=== PATIENT | male | born 1970 | race Two or more races ===

== ENCOUNTER 2023-12-24 21:45 | Emergency (ER) | payer MEDICAID, SELFPAY ==
--- NOTE | 2023-12-24 21:52 | ED.OVERDOSE ---
HPI - Overdose General Chief Complaint: Overdose Stated Complaint: OD, narcan given Source: patient and EMS Mode of arrival: EMS Limitations: no limitations History of Present Illness ED Provider: THOR BEAVERS Narrative: 53 yo male with PMH of opiate use disorder not on medications he was found sitting on porch in backyard overdosed EMS gave 8mg narcan was bagged by EMS responded well on arrival to ER he is sleepy but easily woken and oriented no head trauma. He does not want SUDE eval or detox. He agrees to narcan to go. He denies SI/HI. States he has overdosed before MD complaint: accidental overdose Onset (ago): minute(s) ([employer]) How Overdose Was Discovered: other (bystander) Context: Accidental Overdose: wanted to get high Treatments Prior to Arrival: narcan (8mg) Related Data Allergies Allergy/AdvReac Type Severity Reaction Status Date / Time No Known Allergies Allergy Verified 12/24/23 21:59 Review of Systems Review of Systems: Constitutional : No Fever, No Chills, No Fatigue ENT/Mouth : No sore throat, No Rhinorrhea Eyes: No Eye Pain, No Swelling, No Redness Cardiovascular : No Chest Pain, No SOB, No Dyspnea on Exertion Respiratory : No Cough, No Sputum Gastrointestinal : No Nausea, No Vomiting, No Diarrhea, No abdominal Pain Genitourinary : No Dysuria, No Urinary Frequency, No Hematuria, Musculoskeletal : No joint pain, No Myalgias, No Joint Swelling Skin : No Skin Lesions, No rash Neuro : No Weakness, No Numbness, No Dizziness, no Headache Psych : No Anxiety/Panic, No Depression, no SI/HI All other systems reviewed and are negative [facility] Past Medical History Attestation statement: The following information was validated with the patient. Medical History Opiate use Social History Social History (Updated 12/24/23 @ 22:14 by Lea Parish DO) Patient Tobacco Use Status: Current someday Tobacco user Do you have a plan to hurt others: No Plan Physical Exam Vital Signs: Vital Signs: Last Vital Signs Temp 98.2 F 12/25/23 00:18 Pulse 69 12/25/23 00:18 Resp 14 12/25/23 00:18 BP 155/93 H 12/24/23 21:59 Pulse Ox 94 12/25/23 00:18 O2 Del Method Room Air 12/25/23 00:18 BMI result Body Mass Index 27.3 Appearance: Sleepy but easily woken to voice and answering questions appropriately. Oriented X3. No acute distress. Eyes: Pupils equal, round and reactive to light. ENT: Pharynx normal. atraumatic Neck: Normal inspection. Neck supple. CVS: Normal heart rate and rhythm. Pulses normal. Respiratory: No respiratory distress. Breath sounds normal. Abdomen: Soft and nontender. Skin: Skin warm and dry. Normal skin color. Normal skin turgor. Extremities: No lower extremity edema. No calf ttp Neuro: Oriented X 3. No motor deficit. No sensory deficit. Medical Decision Making Medical Decision Making MDM Narrative: 53 yo male with PMH of opiate abuse and prior overdose found sitting on porch overdosed s/p 8mg narcan by EMS and bagged he is awake and oriented on arrival to ED no SI, no head trauma does not want SUDE eval or detox. He wants to leave after observation period. Narcan to go ordered Differential Diagnosis Differential Diagnoses: The differential diagnosis associated with the presentation includes accidental overdose, opiate use disorder Admission/Observation Consideration of admission/observation: Escalation of care including admission/observation considered patient declines any assistance for opiate use disorder observed for 4 hours and wants to leave no repeat narcan stable for DC Independent Historian Clinical information obtained from an independent historian. History obtained from or confirmed by: EMS Prescription Management I considered prescription management with: Other (narcan) Discharge Plan Discharge Clinical Impression: Drug overdose Patient Disposition: Home, Self-Care Instructions: Adult Overdose (ED), Opioid Use Disorder (ED) Additional Instructions: carry narcan with you at all times you were offered detox but declined return for any difficulty breathing or any other concerns.
[2023-12-24 21:53] VITALS: BP 168/96; PULSE 88; PULSE 91; RESP 16; O2SAT 97; BMI 27.3
[2023-12-24 21:59] VITALS: BP 155/93; PULSE 84; RESP 17; TEMP 36.6; O2SAT 94
--- NOTE | 2023-12-24 22:00 | MHC.EDTECH ---
pt changed over with security into hospital clothing, belongings to decon with security
--- NOTE | 2023-12-24 22:37 | PC.NURSE ---
Pt sleeping at this time, breathing even and unlabored, RR 14, SPO2 93-95% on RA. No outward distress noted.
[2023-12-25 00:18] VITALS: PULSE 69; RESP 14; TEMP 36.8; O2SAT 94
[2023-12-25 02:02] VITALS: BP 139/67; PULSE 69; RESP 16; TEMP 36.8; O2SAT 98
--- NOTE | 2023-12-25 03:49 | PC.NURSE ---
Leona, patient's girlfriend left a phone number [phone] to call her when patient discharged home for transportation. She will be only available to provider a ride back home after 7:00 am.
[2023-12-25] MEDS: Naloxone HCl Nasal TAKE HOME 4 MG SPRAY 8 MG NOSTRILALT (04:27)
[2023-12-25 04:28] VITALS: BP 110/64; PULSE 67; RESP 16; TEMP 36.8; O2SAT 98
== END 2023-12-25 04:39 | disposition home or self-care (01) ==
PROVIDERS: Emergency Provider Emergency Medicine
DX: T50.901A Poisoning by unspecified drugs, medicaments and biological substances, accidental (unintentional), initial encounter (principal); Y92.89 Other specified places as the place of occurrence of the external cause; F11.10 Opioid abuse, uncomplicated
CPT/HCPCS: 99285

== ENCOUNTER 2024-01-04 21:38 | Emergency (ER) | payer MEDICAID, SELFPAY ==
[2024-01-04 21:45] VITALS: BP 136/76; BP 150/80; PULSE 89; PULSE 96; RESP 18; TEMP 36.7; O2SAT 95; O2SAT 96; BMI 22.5
--- NOTE | 2024-01-04 21:47 | ED.OVERDOSE ---
HPI - Overdose General Chief Complaint: ETOH/Substance Use Stated Complaint: OD Time Seen by Provider: 01/04/24 21:41 Source: patient and old records reviewed Mode of arrival: ambulatory Limitations: no limitations History of Present Illness ED Provider: THOR BEAVERS Narrative: 53 yo male with opiate use disorder family found him overdosed on the couch did brief CPR and threw cold water on him he woke up. He did not get narcan. He denies SI. He does not want SUDE or detox he only agrees to stay for one hour as his girlfriend is waiting for him. complaint: accidental overdose Onset (ago): minute(s) (20) Context: Accidental Overdose: wanted to get high Treatments Prior to Arrival: other (cold water and family CPR) Related Data Allergies Allergy/AdvReac Type Severity Reaction Status Date / Time No Known Allergies Allergy Verified 01/04/24 21:49 Review of Systems Review of Systems: Constitutional : No Fever, No Chills, No Fatigue ENT/Mouth : No sore throat, No Rhinorrhea Eyes: No Eye Pain, No Swelling, No Redness Cardiovascular : No Chest Pain, No SOB, No Dyspnea on Exertion Respiratory : No Cough, No Sputum Gastrointestinal : No Nausea, No Vomiting, No Diarrhea, No abdominal Pain Genitourinary : No Dysuria, No Urinary Frequency, No Hematuria, Musculoskeletal : No joint pain, No Myalgias, No Joint Swelling Skin : No Skin Lesions, No rash Neuro : No Weakness, No Numbness, No Dizziness, no Headache Psych : No Anxiety/Panic, No Depression All other systems reviewed and are negative ON LICENSE OF [facility] Past Medical History Attestation statement: The following information was validated with the patient. Source: old records reviewed Medical History Opiate use Social History Social History Alcohol intake: former Patient Tobacco Use Status: Current someday Tobacco user Smoked in Last 30 Days: No Use of substances other than those prescribed or required for medical reasons: Yes Substance Use Type: Heroin Advance Directives: No Advance Directives Information Provided: No Physical Exam Vital Signs: Vital Signs: Last Vital Signs Temp 98.0 F 01/04/24 21:45 Pulse 71 01/04/24 22:34 Resp 16 08/01/24 22:34 BP 103/49 L 08/01/24 22:34 Pulse Ox 97 01/04/24 22:34 O2 Del Method Room Air 01/04/24 22:34 BMI result Body Mass Index 22.5 Appearance: Alert. Oriented X3. No acute distress. Eyes: Pupils equal, round and reactive to light. ENT: Pharynx normal. Neck: Normal inspection. Neck supple. CVS: Normal heart rate and rhythm. Pulses normal. Chest: no ttp or crepitus to sternum or anterior ribs Respiratory: No respiratory distress. Breath sounds normal. Abdomen: Soft and nontender. Skin: Skin warm and dry. Normal skin color. Normal skin turgor. Extremities: No lower extremity edema. No calf ttp Neuro: Oriented X 3. No motor deficit. No sensory deficit. Course Course Course Narrative: 1 hour observation no need for narcan stable for DC Medications Administered Discontinued Medications Generic Name Dose Route Start Last Admin Trade Name Freq PRN Reason Stop Dose Admin Naloxone HCl 8 mg 01/04/24 21:41 01/04/24 21:51 Naloxone Hcl Nasal Take Home 4 Mg [place]inn NOSTRILALT 01/04/24 21:42 8 mg ONCE ONE Administration Medical Decision Making Medical Decision Making [facility] Narrative: 53 y male with PMH of opiate use disorder not on therapy declines SUDE s/p overdose he has no SI he does not want detox at this time will observe x 1 hour as he agrees to that order narcan and DC home with girlfriend. Differential Diagnosis Differential Diagnoses: The differential diagnosis associated with the presentation includes opiate use disorder Admission/Observation Consideration of admission/observation: Escalation of care including admission/observation considered if okay at one hour will DC home Independent Historian Clinical information obtained from an independent historian. History obtained from or confirmed by: EMS External Record Review External record reviewed: Outpatient record Prescription Management I considered prescription management with: Other (narcan) Discharge Plan Discharge Clinical Impression: Opiate overdose Patient Disposition: Home, Self-Care Instructions: Adult Overdose (ED) Additional Instructions: return for any worsening symptoms or concerns carry narcan with with you at all times Print Language: Jamaican
[2024-01-04] MEDS: Naloxone HCl Nasal TAKE HOME 4 MG SPRAY 8 MG NOSTRILALT (21:51)
[2024-01-04 22:34] VITALS: BP 103/49; PULSE 71; RESP 16; O2SAT 97
[2024-01-04 23:17] VITALS: BP 103/49; PULSE 71; RESP 16; TEMP 36.8; O2SAT 97
== END 2024-01-04 23:17 | disposition home or self-care (01) ==
PROVIDERS: Emergency Provider Emergency Medicine
DX: T40.1X1A Poisoning by heroin, accidental (unintentional), initial encounter (principal); R40.4 Transient alteration of awareness; Y92.9 Unspecified place or not applicable; F17.210 Nicotine dependence, cigarettes, uncomplicated
CPT/HCPCS: 99284